=== PATIENT | female | born 1980 | race Caucasian/White ===

== ENCOUNTER 2017-01-29 07:55 | Day surgery (SDC) | payer MEDICAID ==
[2017-01-21 12:04] LABS: APPEARANCE,URINE CLEAR; BILIRUBIN,URINE NEGATIVE (NEGATIVE); GLUCOSE, URINE NEGATIVE (NEGATIVE); KETONES,URINE NEGATIVE (NEGATIVE); LEUKOCYTE ESTERASE,URINE NEGATIVE (NEGATIVE); NITRITE,URINE NEGATIVE (NEGATIVE); PROTEIN,URINE NEGATIVE (NEGATIVE); UROBILINOGEN,URINE NEGATIVE mg/dL (<2.0)
[2017-01-21 12:04] LABS: HEMATOCRIT 40.5 % (36.0-47.0); HEMOGLOBIN 13.8 g/dL (12.0-15.5); HGB HCT DIFFERENCE 0.9; MEAN CORPUSCULAR HEMOGLOBIN 30.8 pg (27.0-33.4); MEAN CORPUSCULAR HGB CONC 34.2 g/dL (32.0-36.0); MEAN CORPUSCULAR VOLUME 90 fl (80-97); RED CELL DISTRIBUTION WIDTH 13.6 % (11.5-14.0); WHITE BLOOD COUNT 6.1 10^3/uL (4.0-10.5)
[2017-01-21 12:18] LABS: ALANINE AMINOTRANSFERASE 136 U/L (9-52); ALBUMIN 4.5 g/dL (3.5-5.0); ALKALINE PHOSPHATASE 109 U/L (38-126); ANION GAP 15 (5-19); ASPARTATE AMINO TRANSFERASE 90 U/L (14-36); BILIRUBIN,DIRECT 0.3 mg/dL (0.0-0.4); BILIRUBIN,TOTAL 0.5 mg/dL (0.2-1.3); BLOOD UREA NITROGEN 13 mg/dL (7-20); CALCIUM 9.3 mg/dL (8.4-10.2); CARBON DIOXIDE 19 mmol/L (22-30); CHLORIDE 111 mmol/L (98-107); CREATININE RESULT 1.07 mg/dL (0.52-1.25); GLUCOSE 79 mg/dL (75-110); POTASSIUM 4.9 mmol/L (3.6-5.0); SODIUM 145.1 mmol/L (137-145); TOTAL PROTEIN 6.9 g/dL (6.3-8.2)
[2017-01-29] MEDS ORDERED: MIDAZOLAM 2 MG/2 ML INJ ONE (09:15)
[2017-01-29] MEDS ORDERED: FENTANYL CITRATE INJ/PF 100 MCG/2 ML AMPUL ONE (09:15)
[2017-01-29] MEDS ORDERED: PROPOFOL INJ 200 MG/20 ML VIAL IV ONE (09:16)
[2017-01-29] MEDS ORDERED: MORPHINE SULFATE 10 MG/ML INJ ONE (09:16)
[2017-01-29] MEDS ORDERED: IBUPROFEN INJ 800 MG/8 ML VIAL IV ONE (09:16)
[2017-01-29] MEDS ORDERED: MORPHINE SULFATE 10 MG/ML INJ IV PRN (09:50)
[2017-01-29] MEDS ORDERED: ONDANSETRON HCL INJ/PF 4 MG/2 ML SDV IV PRN (09:50)
[2017-01-29] MEDS ORDERED: DIPHENHYDRAMINE HCL 50 MG/ML VIAL IV PRN (09:50)
[2017-01-29] MEDS ORDERED: PROMETHAZINE HCL INJ 25 MG/1 ML VIAL IV PRN ×2 (09:50)
[2017-01-29] MEDS ORDERED: MEPERIDINE HCL/PF INJ 25 MG/1 ML DISP.SYRIN IV PRN (09:50)
[2017-01-29] MEDS ORDERED: OXYCODONE-ACETAMINOPHEN 5-325 MG TABLET PO PRN ×3 (09:50→10:22)
[2017-01-29] MEDS ORDERED: FENTANYL CITRATE INJ/PF 100 MCG/2 ML AMPUL IV PRN ×3 (09:50)
[2017-01-29] MEDS ORDERED: SUCCINYLCHOLINE CHLORIDE INJ 200 MG/10 ML VIAL ONE (10:39)
[2017-01-29] MEDS ORDERED: DEXAMETHASONE SOD PHOSPHATE INJ 4 MG/1 ML VIAL ONE (10:39)
[2017-01-29] MEDS: ONDANSETRON HCL INJ/PF 4 MG/2 ML SDV ONE ×2 (11:15→13:15)
--- NOTE | 2017-01-29 11:48 | OPERATIVE REPORT E ---
Operative Report NAME: CORINE ADAN : 1980 AGE: 36Y DATE OF SURGERY: 01/29/2017 ROOM: PREOPERATIVE DIAGNOSIS: SOLOMON. POSTOPERATIVE DIAGNOSIS: SOLOMON. PROCEDURE: TVT using a JHONNY sling. SURGEON: Rachael SNYDER M.D. ESTIMATED BLOOD LOSS: Less than 20 mL. TISSUE REMOVED OR ALTERED: No tissue was removed. ANESTHESIA: General. PROCEDURE: The patient was placed on the lithotomy position and prepped and draped in sterile fashion. The suburethral area was opened approximately 2 cm in the midline. The underlying vesicovaginal tissue was bluntly and sharply divided until the posterior aspect of the symphysis could be palpated. Two puncture wounds were made above the symphysis and the sling needles were then passed down from above and out the vaginal defect. Cystoscopy was then performed; no foreign bodies were noted. The sling was placed on the ends of the needles and brought through. A pair of Mead scissors was kept under the urethra for tension-free placement. The vaginal defects were closed using running suture of 2-0 Vicryl. The excess sling at the skin was severed and the puncture wounds closed using Dermabond. The patient's urine remained clear throughout the procedure. She was taken to recovery room in good condition. DICTATING PHYSICIAN: Rachael SNYDER M.D. [id number] PHY#: [id number] ID: [id number] JOB#: [id number] ACCT: [id number] cc:Rachael SNYDER M.D. >
[2017-01-29] MEDS ORDERED: ONDANSETRON 4 MG TAB.RAPDIS ONE (13:36)
[2017-01-29] MEDS ORDERED: IBUPROFEN 800 MG TABLET PO SCH (14:00)
[2017-01-29 14:52] VITALS: BP 121/70
== END 2017-01-29 13:45 | disposition home or self-care (01) ==
LOC: OROUT 07:55
PROVIDERS: ATTEND Obstetrics & Gynecology Gynecology
PROC: 0TUD4JZ Supplement Urethra with Synthetic Substitute, Percutaneous Endoscopic Approach (ICD-10-PCS; principal; 2017-01-29 09:45)
DX: N39.3 Stress incontinence (female) (male) (principal); K21.9 Gastro-esophageal reflux disease without esophagitis; R51 Headache; M19.90 Unspecified osteoarthritis, unspecified site; Z79.899 Other long term (current) drug therapy; Z79.1 Long term (current) use of non-steroidal anti-inflammatories (NSAID)
CPT/HCPCS: 86900; 86901; 36415; 86850; 85027; 81025; 80053; 81001; 57288; J2250; J1100; S0119; J3010; J2270; J0330; J2405; J2704; J1741; 840

== ENCOUNTER → 2019-05-28 | Outpatient (CLI) | payer MEDICAID | LOC: LAB 13:13 | PROVIDERS: ATTEND Nurse Practitioner Acute Care | DX: R30.0 Dysuria (principal) | CPT/HCPCS: 87086; 87088; 87186 ==

== ENCOUNTER 2019-06-25 20:36 | Emergency (ER) | payer MEDICAID ==
[2019-06-25 20:44] VITALS: BP 125/81
[2019-06-25] MEDS ORDERED: ALBUTEROL SULFATE HFA (90 MCG/PUFF) 8 GM MDI (1 MDI/ER DISP) IH ONE (21:20)
--- NOTE | 2019-06-25 21:30 | ER Document Report ---
Entered by LIZ KILLIAN SCRIBE 06/25/[id number] Acting as scribe for:MARIE HOYT IV, MD ED General - General Chief Complaint: Cough Stated Complaint: COUGH Time Seen by Provider: 06/25/19 20:55 Primary Care Provider: SITA LACEY NP [Primary Care Provider] - Follow up as needed Mode of Arrival: Ambulatory Information source: Patient Notes: This 38 year old female patient presents to the ED today with complaints of shortness of breath, dry cough, and chest heaviness that started x1 day ago. Patient states that she is a "social smoker" and that yesterday was the first time she has smoked a cigarette in a couple of months. She reports that while smoking, it was difficult and painful for her to inhale and that she has felt "extremely winded" at rest since. She notes that she has had trouble with taking deep breaths in the past, but denies having that sensation now. Patient denies fever, stating that although she does not have a thermometer at home, she hasn't felt warm or diaphoretic. She also denies nausea, vomiting, or diarrhea. TRAVEL OUTSIDE OF THE [place] IN LAST 30 DAYS: No - Related Data Allergies/Adverse Reactions: No Known Allergies Allergy (Verified 06/25/19 20:44) Past Medical History - Social History Smoking Status: Current Some Day Smoker Cigarette use (# per day): Yes Chew tobacco use (# tins/day): No Smoking Education Provided: No Frequency of alcohol use: Rare Drug Abuse: None Family History: Reviewed & Not Pertinent Patient has suicidal ideation: No Patient has homicidal ideation: No Musculoskeletal Medical History: Reports Hx Arthritis Surgical Hx: Negative - Immunizations Hx Diphtheria, Pertussis, Tetanus Vaccination: Yes - within 10 years Review of Systems - Review of Systems Constitutional: See HPI. denies: Chills, Fever EENT: No symptoms reported Cardiovascular: No symptoms reported Respiratory: See HPI, Cough, Short of breath, Other - Chest heaviness Gastrointestinal: See HPI. denies: Diarrhea, Nausea, Vomiting Genitourinary: No symptoms reported Female Genitourinary: No symptoms reported Musculoskeletal: No symptoms reported Skin: No symptoms reported Hematologic/Lymphatic: No symptoms reported Neurological/Psychological: No symptoms reported -: Yes All other systems reviewed and negative Physical Exam - Vital signs Vitals: Temp Pulse Resp BP Pulse Ox 98.9 F 72 16 125/81 100 06/25/19 20:40 06/25/19 20:40 06/25/19 20:40 06/25/19 20:40 06/25/19 20:40 Interpretation: Normal - General General appearance: Appears well, Alert In distress: None - HEENT Head: Normocephalic, Atraumatic Eyes: Normal Pupils: PERRL - Respiratory Respiratory status: No respiratory distress Chest status: Nontender Breath sounds: Normal Chest palpation: Normal - Cardiovascular Rhythm: Regular Heart sounds: Normal auscultation Murmur: No Friction rub: No Gallop: None auscultated - Abdominal Inspection: Normal Distension: No distension Bowel sounds: Normal Tenderness: Nontender - Abdomen soft Organomegaly: No organomegaly - Back Back: Normal, Nontender - Extremities General upper extremity: Normal inspection General lower extremity: Normal inspection - Neurological Neuro grossly intact: Yes - Psychological Associated symptoms: Normal affect, Normal mood - Skin Skin Temperature: Warm Skin Moisture: Dry Skin Color: Normal Course - Re-evaluation Re-evalutation: 06/25/19 23:19 At 2319 hrs., this MD was informed that the patient decided to leave prior to receiving the results of all her tests. The patient was encouraged by the nurse to return to the ED at any time if she decide to seek further treatment. - Vital Signs Vital signs: Temp Pulse Resp BP Pulse Ox 98.9 F 72 16 125/81 100 06/25/19 20:40 06/25/19 20:40 06/25/19 20:40 06/25/19 20:40 06/25/19 20:40 - Diagnostic Test Radiology reviewed: Reports reviewed Discharge - Discharge Clinical Impression: Dyspnea Qualifiers: Dyspnea type: unspecified Qualified Code(s): R06.00 - Dyspnea, unspecified Condition: Stable Disposition: ELOPED Referrals: SITA LACEY NP [Primary Care Provider] - Follow up as needed I personally performed the services described in the documentation, reviewed and edited the documentation which was dictated to the scribe in my presence, and it accurately records my words and actions.
[2019-06-25] MEDS ORDERED: ALBUTEROL SULFATE HFA (90 MCG/PUFF) 8 GM MDI IH ONE (21:43)
--- NOTE | 2019-06-25 22:40 | RADIOLOGY REPORT (SQ) ---
CLINICAL INDICATION: cough. TECHNIQUE: A single portable AP view was obtained of the chest at 2210 hours. COMPARISON: None. FINDINGS: The cardiomediastinal silhouette is normal. The lungs are grossly clear. No evidence of effusion or pneumothorax. The visualized bones are unremarkable. IMPRESSION: No evidence of active intrathoracic disease.
[2019-06-25 22:57] LABS: A TYPE INFLUENZA AG NEGATIVE (NEGATIVE); B INFLUENZA AG NEGATIVE (NEGATIVE)
== END 2019-06-25 22:41 | disposition left against medical advice (07) ==
LOC: ER 20:36
DX: R06.02 Shortness of breath (principal); R05 Cough; R09.89 Other specified symptoms and signs involving the circulatory and respiratory systems; F17.210 Nicotine dependence, cigarettes, uncomplicated; Z20.828 Contact with and (suspected) exposure to other viral communicable diseases
CPT/HCPCS: 99281; 87635; 87804; 71045; J3490

== ENCOUNTER 2019-09-06 09:32 | Day surgery (SDC) | payer MEDICAID ==
[2019-09-01 09:52] LABS: HEMATOCRIT 41.5 % (36.0-47.0); HEMOGLOBIN 14.1 g/dL (12.0-15.5); MEAN CORPUSCULAR HEMOGLOBIN 29.9 pg (27.0-33.4); MEAN CORPUSCULAR VOLUME 88 fl (80-97); PLATELET COUNT 221 10^3/uL (150-450); RED BLOOD COUNT 4.71 10^6/uL (3.72-5.28); RED CELL DISTRIBUTION WIDTH 13.9 % (11.5-14.0)
[2019-09-01 10:31] LABS: ANION GAP 8 (5-19); BLOOD UREA NITROGEN 11 mg/dL (7-20); CALCIUM 9.2 mg/dL (8.4-10.2); CARBON DIOXIDE 21 mmol/L (22-30); CHLORIDE 109 mmol/L (98-107); GLUCOSE 94 mg/dL (75-110); POTASSIUM 3.9 mmol/L (3.6-5.0)
[~2019-09-06 09:32] MED LIST: CEFAZOLIN 2 GM/D5W RTU 2 GM/50 ML RTUPB IV PRN; CEFAZOLIN SODIUM 2 GM in DEXTROSE 5%-WATER 100 ML IV PRN; LACTATED RINGERS 1000 ML IV PRN
[2019-09-06] MEDS ORDERED: CEFAZOLIN 2 GM/D5W RTU 2 GM/50 ML RTUPB IV ONE (10:19)
[2019-09-06] MEDS ORDERED: MIDAZOLAM 2 MG/2 ML INJ ONE (10:35)
[2019-09-06] MEDS ORDERED: KETOROLAC TROMETHAMINE 60 MG/2 ML SDV ONE (10:35)
[2019-09-06] MEDS ORDERED: DEXAMETHASONE SOD PHOSPHATE INJ 4 MG/1 ML VIAL ONE (10:35)
[2019-09-06] MEDS ORDERED: PROPOFOL INJ 200 MG/20 ML VIAL IV ONE (10:35)
[2019-09-06] MEDS ORDERED: ONDANSETRON HCL INJ/PF 4 MG/2 ML SDV ONE (10:35)
[2019-09-06] MEDS ORDERED: FENTANYL CITRATE INJ/PF 100 MCG/2 ML AMPUL ONE (10:35)
[2019-09-06] MEDS ORDERED: BUPIVACAINE INJ/PF LIPOSOME/PF 266 MG/20 ML SDV ONE (11:00)
[2019-09-06] MEDS ORDERED: ONDANSETRON HCL INJ/PF 4 MG/2 ML SDV IV PRN (11:02)
[2019-09-06] MEDS ORDERED: FENTANYL CITRATE INJ/PF 100 MCG/2 ML AMPUL IV PRN ×3 (11:02)
[2019-09-06] MEDS ORDERED: MORPHINE SULFATE 10 MG/ML INJ IV PRN (11:02)
[2019-09-06] MEDS ORDERED: DIPHENHYDRAMINE HCL 50 MG/ML VIAL IV PRN (11:02)
[2019-09-06] MEDS ORDERED: OXYCODONE-ACETAMINOPHEN 5-325 MG TABLET PO PRN ×3 (11:02→11:34)
[2019-09-06] MEDS ORDERED: MEPERIDINE HCL/PF INJ 25 MG/1 ML DISP.SYRIN IV PRN (11:02)
[2019-09-06] MEDS ORDERED: PROMETHAZINE HCL INJ 25 MG/1 ML VIAL IV PRN ×2 (11:02)
--- NOTE | 2019-09-06 11:31 | Operative Report ---
Nonrecallable Operative Report DATE OF SURGERY: 09/06/19 PREOPERATIVE DIAGNOSIS: Hidradenitis right thigh POSTOPERATIVE DIAGNOSIS: Hidradenitis right thigh OPERATION: Excision hidradenitis right thigh SURGEON: MOOSE KENNY 1ST CLINICAL INFORMATICS SPECIALIST: GRISELDA SCALES ANESTHESIA: GA TISSUE REMOVED OR ALTERED: Skin right thigh COMPLICATIONS: None ESTIMATED BLOOD LOSS: Cc INTRAOPERATIVE FINDINGS: See note PROCEDURE: Patient was brought operating room awake alert stable condition placed in the upper table supine position induced under general anesthesia. She was then frog legged. The right upper inner thigh was prepped and draped in usual sterile fashion. She 3 areas of hidradenitis in the right upper thigh medial and just inferior to the groin crease the 2 posterior areas were within 4 cm of each other so that was handled with an elliptical incision made approximately 8 cm long by 2 cm wide from the area over the femoral vessels posteriorly we carried our dissection down through subcutaneous tissue with the 10 blade and then excised with Bovie cautery the subcutaneous fat was reapproximated with interrupted 3-0 Polysorb sutures and the skin was reapproximated intracuticular 4-0 Biosyn. Attention was then turned to the anterior portion of the right medial thigh one other area of hidradenitis was excised with a 4 cm incision lengthwise by 2 cm tedious incision incision wide dissection through subcutaneous tissue with a 10 blade the deep fat was very dissected with the Bovie cautery and the skin was reapproximated with interrupted 3-0 Polysorb in the subcu and skin was reapproximated with 4 oh bison and Steri-Strips were applied. A single dressing was placed over both incisions which completed the procedure. Patient was awakened in the operating transferred recovery in stable condition. Sponge and needle counts were correct x HERBIE Hampton was present for the entire procedure help with wound retraction wound closure2
--- NOTE | 2019-09-06 11:34 | Discharge Summary ---
Discharge Summary (SDC) - Discharge Final Diagnosis: Hidradenitis right thigh Date of Surgery: 09/06/19 Discharge Date: 09/06/19 Condition: Good Treatment or Instructions: May shower do not place soap on the Steri-Strips pat dry Prescriptions: Hydrocodone/Acetaminophen [Early 10-325 mg Tablet] 1 tab PO Q6HP PRN #15 tablet PRN Reason: Referrals: VIVEK ARTIS DO [Primary Care Provider] - Discharge Diet: As Tolerated Discharge Activity: Activity As Tolerated Report the Following to Your Physician Immediately: Fever over 101 Degrees, Unusual Bleeding, Redness
[2019-09-06 13:37] VITALS: BP 123/88
[2019-09-06] MEDS ORDERED: SUCCINYLCHOLINE CHLORIDE INJ 200 MG/10 ML VIAL ONE (21:45)
== END 2019-09-06 13:30 | disposition home or self-care (01) ==
LOC: OROUT 09:32
PROVIDERS: ATTEND Surgery
DX: L73.2 Hidradenitis suppurativa (principal); K21.9 Gastro-esophageal reflux disease without esophagitis; G43.909 Migraine, unspecified, not intractable, without status migrainosus; Z79.899 Other long term (current) drug therapy
CPT/HCPCS: 36415; 85027; 87635; 81025; 80048; 88304 ×2; 11462; J2250; J1100; J1885; J3010; J0330; J2405; J2704; J0690; C9290; C9803; J7060

== ENCOUNTER 2019-09-15 11:40 | Emergency (ER) | payer MEDICAID ==
--- NOTE | 2019-09-15 12:25 | ER Document Report ---
ED Medical Screen (RME) - General Chief Complaint: Leg Pain Stated Complaint: LEG PAIN/WOUND POST OP Time Seen by Provider: 09/15/19 12:21 Primary Care Provider: VIVEK ARTIS DO [Primary Care Provider] - Follow up as needed Notes: HPI: 38-year-old female presenting for wound check. Patient had several abscesses surgically removed on [address] Cole. States the Steri-Strips started coming off yesterday and the area has opened up and is now draining purulent material. She does not feel she has had a fever. She states she called the on-call surgeon today and was told the area was likely fine although did not examine her. She would like the area examined and evaluated PHYSICAL EXAMINATION: Patient is fully dressed in triage. Wound is on the inner upper right groin and thigh region. Examination deferred until patient is in room and gown for better visualization I have greeted and performed a rapid initial assessment of this patient. A comprehensive ED assessment and evaluation of the patient, analysis of test results and completion of medical decision making process will be conducted by an additional ED providers. TRAVEL OUTSIDE OF THE [place] IN LAST 30 DAYS: No - Related Data Allergies/Adverse Reactions: No Known Allergies Allergy (Verified 09/15/19 12:11) Home Medications: topamax (trokendi). nexium. amovig Past Medical History - Social History Chew tobacco use (# tins/day): No Frequency of alcohol use: None Drug Abuse: None - Past Medical History Cardiac Medical History: Denies: Hx Coronary Artery Disease, Hx Heart Attack, Hx Hypertension Pulmonary Medical History: Denies: Hx Asthma, Hx Bronchitis, Hx COPD, Hx Pneumonia Neurological Medical History: Reports: Hx Migraine. Denies: Hx Cerebrovascular Accident, Hx Seizures Musculoskeltal Medical History: Reports Hx Arthritis Past Surgical History: Denies: Hx Pacemaker - Immunizations Hx Diphtheria, Pertussis, Tetanus Vaccination: Yes - within 10 years Physical Exam - Vital signs Vitals: Temp Pulse Resp BP Pulse Ox 98.6 F 72 20 137/93 H 99 09/15/19 11:44 09/15/19 11:44 09/15/19 11:44 09/15/19 11:44 09/15/19 11:44 Course - Vital Signs Vital signs: Temp Pulse Resp BP Pulse Ox 98.6 F 72 20 137/93 H 99 09/15/19 12:11 09/15/19 11:44 09/15/19 11:44 09/15/19 11:44 09/15/19 11:44 Doctor's Discharge - Discharge Referrals: VIVEK ARTIS DO [Primary Care Provider] - Follow up as needed
[2019-09-15 12:59] LABS: HEMATOCRIT 39.9 % (36.0-47.0); HEMOGLOBIN 13.7 g/dL (12.0-15.5); MEAN CORPUSCULAR HEMOGLOBIN 30.1 pg (27.0-33.4); MEAN CORPUSCULAR HGB CONC 34.4 g/dL (32.0-36.0); MEAN CORPUSCULAR VOLUME 88 fl (80-97); PLATELET COUNT 248 10^3/uL (150-450); RED BLOOD COUNT 4.56 10^6/uL (3.72-5.28); WHITE BLOOD COUNT 6.6 10^3/uL (4.0-10.5)
[2019-09-15 13:17] LABS: ABSOLUTE LYMPHOCYTES# (MANUAL) 1.7 10^3/uL (0.5-4.7); ABSOLUTE MONOCYTES # (MANUAL) 0.3 10^3/uL (0.1-1.4); BASOPHILS % (MANUAL) 2 % (0-2); EOSINOPHILS % (MANUAL) 3 % (0-6); LYMPHOCYTES % (MANUAL) 18 % (13-45); MONOCYTES % (MANUAL) 4 % (3-13); PLATELET COMMENT ADEQUATE; RBC MORPHOLOGY COMMENT NORMO-CYTIC/CHROMIC; SEGMENTED NEUTROPHILS % (MAN) 66 % (42-78); TOTAL CELLS COUNTED 100
[2019-09-15 13:21] LABS: ALBUMIN 4.4 g/dL (3.5-5.0); ALKALINE PHOSPHATASE 95 U/L (38-126); ANION GAP 7 (5-19); ASPARTATE AMINO TRANSFERASE 140 U/L (14-36); BILIRUBIN,TOTAL 0.4 mg/dL (0.2-1.3); BLOOD UREA NITROGEN 15 mg/dL (7-20); CALCIUM 9.5 mg/dL (8.4-10.2); CARBON DIOXIDE 19 mmol/L (22-30); CHLORIDE 114 mmol/L (98-107); GLUCOSE 93 mg/dL (75-110); POTASSIUM 4.1 mmol/L (3.6-5.0); TOTAL PROTEIN 7.2 g/dL (6.3-8.2)
[2019-09-15] MEDS ORDERED: ACETAMINOPHEN 325 MG TABLET PO ONE (14:41)
--- NOTE | 2019-09-15 14:43 | ER Document Report ---
ED Suture/Wound Recheck - General Chief Complaint: Leg Pain Stated Complaint: LEG PAIN/WOUND POST OP Time Seen by Provider: 09/15/19 12:21 Primary Care Provider: VIVEK ARTIS DO [Primary Care Provider] - Follow up as needed Mode of Arrival: Ambulatory Information source: Patient Notes: 38-year-old female with no previous medical problems presents emergency room co ncerned about some drainage to a post surgical area to her right thigh. Patient states she had some boils and abscesses surgically opened and removed on Friday September 06, 2019. Surgery was performed by Dr. Kenny patient states that some of the Steri-Strips fell off 3 days later. Today she noticed some purulent drainage from the area. She denies any fevers. Denies any nausea, vomiting, states she did call the office and spoke with Dr. Kenny who told her that the drainage was normal. Patient presentsto the emergency room for reevaluation. Currently not taking anything for pain. Not currently on any antibiotics. TRAVEL OUTSIDE OF THE [place] IN LAST 30 DAYS: No - Related Data Allergies/Adverse Reactions: No Known Allergies Allergy (Verified 09/15/19 12:11) Home Medications: topamax (trokendi). nexium. amovig Past Medical History - General Information source: Patient - Social History Smoking Status: Never Smoker Chew tobacco use (# tins/day): No Frequency of alcohol use: None Drug Abuse: None Family History: Reviewed & Not Pertinent Patient has homicidal ideation: No - Past Medical History Cardiac Medical History: Denies: Hx Coronary Artery Disease, Hx Heart Attack, Hx Hypertension Pulmonary Medical History: Denies: Hx Asthma, Hx Bronchitis, Hx COPD, Hx Pneumonia Neurological Medical History: Reports: Hx Migraine. Denies: Hx Cerebrovascular Accident, Hx Seizures Musculoskeletal Medical History: Reports Hx Arthritis Past Surgical History: Denies: Hx Pacemaker - Immunizations Hx Diphtheria, Pertussis, Tetanus Vaccination: Yes - within 10 years Review of Systems - Review of Systems Constitutional: No symptoms reported Cardiovascular: No symptoms reported Respiratory: No symptoms reported Musculoskeletal: No symptoms reported Skin: Other - Drainage Neurological/Psychological: No symptoms reported -: Yes All other systems reviewed and negative Physical Exam - Vital signs Vitals: Temp Pulse Resp BP Pulse Ox 98.6 F 72 20 137/93 H 99 09/15/19 11:44 09/15/19 11:44 09/15/19 11:44 09/15/19 11:44 09/15/19 11:44 - General General appearance: Appears well, Alert In distress: Mild - Respiratory Respiratory status: No respiratory distress Chest status: Nontender Breath sounds: Normal Chest palpation: Normal - Cardiovascular Rhythm: Regular Heart sounds: Normal auscultation Murmur: No - Extremities General upper extremity: Normal inspection, Nontender, Normal color, Normal ROM, Normal temperature General lower extremity: Normal inspection, Nontender, Normal color, Normal ROM, Normal temperature, Normal weight bearing. No: Omar's sign - Skin Skin Temperature: Warm Skin Moisture: Dry Skin Color: Erythema Skin irregularity: Erythema Location of irregularity: Extremities - Right thigh Notes: The surgical wound x2 to right thigh. Mild erythema. Not warm or tender to palpation. There is no active discharge or draining noted at this time. Some of the Steri-Strips have fallen off but there does not appear to be any signs of cellulitis or infection. Course - Re-evaluation Re-evalutation: 09/15/19 14:44 Patient is afebrile, nontoxic-appearing, wound with mild dehiscence but no active discharge or draining noted. There is minimal erythema. It is not warm or tender to palpation. We will replace the Steri-Strips that have fallen off. Patient was counseled on proper wound care. She can take Tylenol and or Motrin as needed for pain. Patient follow-up with surgeon as scheduled. Patient was given strict return to the emergency room guidelines. Return for any new or worsening symptoms. All questions were answered. Patient verbalized understanding and agrees with plan of care. - Vital Signs Vital signs: Temp Pulse Resp BP Pulse Ox 98.6 F 72 20 137/93 H 99 09/15/19 12:11 09/15/19 11:44 09/15/19 11:44 09/15/19 11:44 09/15/19 11:44 - Laboratory Result Diagrams: 09/15/19 12:40 09/15/19 12:40 Laboratory results interpreted by me: 09/15/19 12:40 Chloride 114 H Carbon Dioxide 19 L Est GFR (MDRD) Non-Af 58 L AST 140 H ALT 176 H Discharge - Discharge Clinical Impression: Visit for wound check, Abscess of right thigh Condition: Stable Disposition: HOME, SELF-CARE Instructions: Care of Steri-Strip Closure ([facility]) Additional Instructions: Patient was counseled to keep area clean and dry. Steri-Strips should fall off in the next 7 to 10 days. Outpatient follow-up with general surgery as scheduled. Tylenol and/or Motrin as needed for pain. Return for any new or worsening symptoms. Referrals: VIVEK ARTIS DO [Primary Care Provider] - Follow up as needed MOOSE KENNY MD [ACTIVE STAFF] - Follow up as needed
[2019-09-15 15:35] VITALS: BP 140/81
== END 2019-09-15 15:36 | disposition home or self-care (01) ==
LOC: ER 11:40
DX: L02.415 Cutaneous abscess of right lower limb (principal); M79.604 Pain in right leg
CPT/HCPCS: 99283; 36415; 87070; 87205; 83605; 85025; 87077; 80053; 87186; J3490

== ENCOUNTER 2019-09-22 16:59 | Emergency (ER) | payer MEDICAID ==
--- NOTE | 2019-09-22 17:28 | ER Document Report ---
ED Medical Screen (RME) - General Chief Complaint: Wound Infection Stated Complaint: RIGHT THIGH WOUND Time Seen by Provider: 09/22/19 17:20 Primary Care Provider: VIVEK ARTIS DO [Primary Care Provider] - Follow up as needed Notes: HPI: 38-year-old female presenting for wound check right inner thigh. States she was here a week ago was evaluated for possible wound infection. States it is not any better, has an appointment with Dr. Cole on Thursday but felt she could not wait for the evaluation PHYSICAL EXAMINATION: Exam deferred in triage secondary to needing gown to expose area on the inner thigh. patient requests Dr. Zavala for evaluation I have greeted and performed a rapid initial assessment of this patient. A comprehensive ED assessment and evaluation of the patient, analysis of test resu lts and completion of medical decision making process will be conducted by an additional ED providers. TRAVEL OUTSIDE OF THE [place] IN LAST 30 DAYS: No - Related Data Allergies/Adverse Reactions: No Known Allergies Allergy (Verified 09/15/19 12:11) Past Medical History - Social History Frequency of alcohol use: None - Past Medical History Cardiac Medical History: Denies: Hx Coronary Artery Disease, Hx Heart Attack, Hx Hypertension Pulmonary Medical History: Denies: Hx Asthma, Hx Bronchitis, Hx COPD, Hx Pneumonia Neurological Medical History: Reports: Hx Migraine. Denies: Hx Cerebrovascular Accident, Hx Seizures Musculoskeltal Medical History: Reports Hx Arthritis Past Surgical History: Denies: Hx Pacemaker - Immunizations Hx Diphtheria, Pertussis, Tetanus Vaccination: Yes - within 10 years Physical Exam - Vital signs Vitals: Temp Pulse Resp BP Pulse Ox 99.2 F 95 18 137/82 H 97 09/22/19 17:02 09/22/19 17:02 09/22/19 17:02 09/22/19 17:02 09/22/19 17:02 Course - Vital Signs Vital signs: Temp Pulse Resp BP Pulse Ox 99.2 F 95 18 137/82 H 97 09/22/19 17:02 09/22/19 17:02 09/22/19 17:02 09/22/19 17:02 09/22/19 17:02 Doctor's Discharge - Discharge Referrals: VIVEK ARTIS DO [Primary Care Provider] - Follow up as needed
--- NOTE | 2019-09-22 19:48 | ER Document Report ---
ED General - General Chief Complaint: Wound Infection Stated Complaint: RIGHT THIGH WOUND Time Seen by Provider: 09/22/19 17:20 Primary Care Provider: VIVEK ARTIS DO [Primary Care Provider] - Follow up as needed Mode of Arrival: Ambulatory Information source: Patient Notes: 09/22/19 17:19 - Nursing Note by MARSHDAVID Accivana Num: [id number] : 1980 Patient Age: 38 Pt states that she had hidradenitis on her right upper thigh, she had this operated on 09/15, she states this has opened up and is not healing correctly. Pt states that she only wants to see Dr. Zavala. Pt denies any other distress at this time. Pt is a&ox4 with e/u respirations. angel notes HPI: 38-year-old female presenting for wound check right inner thigh. States she was here a week ago was evaluated for possible wound infection. States it is not any better, has an appointment with Dr. Cole on Thursday but felt she could not wait for the evaluation PHYSICAL EXAMINATION: Exam deferred in triage secondary to needing gown to expose area on the inner thigh. patient requests Dr. Zavala for evaluation my notes 38-year-old female arrives with chief complaint of right medial proximal thigh wound. Patient reports on 05 September she had 2 sections of hidradenitis resected by Dr. Cole. She called him and he advised just to follow-up with him on the and that the wound edges will heal on their own. She came and saw personnel last Thursday here at the ER. Patient has been cleansing the wound with Hibiclens and applying a nonadherent to the wound and it has been healing since then. I advised her against using any ointments and allowed the wound to dry as much as possible. 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 TRAVEL OUTSIDE OF THE [place] IN LAST 30 DAYS: No - HPI Onset: Other - x 3 weeks Onset/Duration: Persistent Quality of pain: Achy Severity: Mild Pain Level: 1 Associated symptoms: None Exacerbated by: Denies Relieved by: Denies Similar symptoms previously: Yes Recently seen / treated by doctor: Yes - Related Data Allergies/Adverse Reactions: No Known Allergies Allergy (Verified 09/15/19 12:11) Past Medical History - General Information source: Patient - Social History Smoking Status: Never Smoker Cigarette use (# per day): No Chew tobacco use (# tins/day): No Smoking Education Provided: No Frequency of alcohol use: None Drug Abuse: None Lives with: Family Family History: Reviewed & Not Pertinent Patient has suicidal ideation: No Patient has homicidal ideation: No - Past Medical History Cardiac Medical History: Denies: Hx Coronary Artery Disease, Hx Heart Attack, Hx Hypertension Pulmonary Medical History: Denies: Hx Asthma, Hx Bronchitis, Hx COPD, Hx Pneumonia Neurological Medical History: Reports: Hx Migraine. Denies: Hx Cerebrovascular Accident, Hx Seizures Musculoskeletal Medical History: Reports Hx Arthritis Past Surgical History: Denies: Hx Pacemaker - Immunizations Hx Diphtheria, Pertussis, Tetanus Vaccination: Yes - within 10 years Review of Systems - Review of Systems Constitutional: No symptoms reported EENT: No symptoms reported Cardiovascular: No symptoms reported Respiratory: No symptoms reported Gastrointestinal: No symptoms reported Genitourinary: No symptoms reported Female Genitourinary: No symptoms reported Musculoskeletal: No symptoms reported Skin: See HPI, Other - Right medial thigh surgical wound Hematologic/Lymphatic: No symptoms reported Neurological/Psychological: No symptoms reported Physical Exam - Vital signs Vitals: Temp Pulse Resp BP Pulse Ox 99.2 F 95 18 137/82 H 97 09/22/19 17:02 09/22/19 17:02 09/22/19 17:02 09/22/19 17:02 09/22/19 17:02 Interpretation: Febrile - General General appearance: Appears well - HEENT Head: Normocephalic, Atraumatic Eyes: Normal Pupils: PERRL Nasal: Normal Mouth/Lips: Normal Mucous membranes: Normal Pharynx: Normal Neck: Normal - Respiratory Respiratory status: No respiratory distress Chest status: Nontender Breath sounds: Normal Chest palpation: Normal - Cardiovascular Rhythm: Regular Heart sounds: Normal auscultation Murmur: No - Abdominal Inspection: Normal Distension: No distension Bowel sounds: Normal Tenderness: Nontender Organomegaly: No organomegaly - Rectal Hemorrhoids: Other - deferred - Genitourinary Bimanuel exam: Other - deferred - Back Back: Normal - Extremities General upper extremity: Normal inspection, Nontender, Normal color, Normal ROM, Normal temperature General lower extremity: Tender, Normal ROM, Other - Right medial thigh with 2 surgical sites of the proximal thigh. The more inguinal of which was 3 cm in length and appear to be healing well with wound edges approximated. The more gluteal aspect of the surgical wound is about 4-1/2 cm in length with wound dehiscence but appears to be healing well and no signs or symptoms of infection.. No: Omar's sign Course - Vital Signs Vital signs: Temp Pulse Resp BP Pulse Ox 99.2 F 95 18 137/82 H 97 09/22/19 17:02 09/22/19 17:02 09/22/19 17:02 09/22/19 17:02 09/22/19 17:02 Critical Care Note - Critical Care Note Total time excluding time spent on procedures (mins): 30 Discharge - Discharge Clinical Impression: Visit for wound check Condition: Good Disposition: HOME, SELF-CARE Additional Instructions: Follow-up with Dr. Cole as scheduled. Return to ER as needed take medicines as directed. I would advise keeping the wound open to air as much as possible. Keep wound dry as possible by applying sugar and Betadine if needed on a 1 hour basis per day for 3 days. Otherwise do not apply ointments of any kind. May apply Kotex or nonadhesive in order to keep wound from touching other skin areas. Take antibiotics as directed as well as probiotics to avoid any diarrhea. Prescriptions: Sulfamethoxazole/Trimethoprim [Bactrim Ds Tablet] 1 tab PO BID #20 tablet Cephalexin Monohydrate [Keflex 500 mg Capsule] 500 mg PO BID 5 Days #20 capsule Referrals: VIVEK ARTIS DO [Primary Care Provider] - Follow up as needed
[2019-09-22 20:57] VITALS: BP 126/80
== END 2019-09-22 20:57 | disposition home or self-care (01) ==
LOC: ER 16:59
DX: L73.2 Hidradenitis suppurativa (principal)
CPT/HCPCS: 87070; 87205; 99284